=== PATIENT | female | born 1965 | race Caucasian/White ===

== ENCOUNTER 2017-08-17 22:10 | Inpatient (IN) ==
[2017-08-18] MEDS ORDERED: ONDANSETRON 4 MG/2 ML VIAL IV STA (00:07)
[2017-08-18] MEDS ORDERED: MORPHINE 2 MG/1 ML SYRINGE IV STA (00:07)
[2017-08-18] MEDS ORDERED: SODIUM CHLORIDE 0.9% 1,000 ML IV STA (00:07)
[2017-08-18 00:25] LABS: Basophils % 0.4 % (0.0-0.8); Eosinophils # 0.1 10*3/uL (0.0-0.87); Eosinophils % 0.9 % (0.00-10.9); Hematocrit 43.6 VOL% (35.7-47.0); Hemoglobin 14.9 GM/DL (12.0-16.0); Immature Granulocytes % 0.2 %; Immature Granulocytes Absolute 0.02 #; Lymphocytes # 0.3 10*3/uL (1.4-4.0); Lymphocytes % 3.4 % (21.3-54.2); Mean Corpuscular HGB Conc 34.2 GM/DL (32-36); Mean Corpuscular Hemoglobin 30 PG (27-34); Mean Corpuscular Volume 86.3 FL (87-102); Mean Platelet Volume 11.5 FL (9.6-12.0); Monocytes # 0.8 10*3/uL (0.11-0.8); Monocytes % 7.9 % (1.7-12.7); Neutrophils # 8.9 10*3/uL (1.4-7.4); Neutrophils % 87.2 % (38.7-73.9); Platelet Count 203 T/CUMM (130-400); Red Blood Count 5.05 MC/CUMM (3.8-5.5); Red Cell Distribution Width 13.8 % (9.3-17.3); White Blood Count 10.1 T/CUMM (4-12)
[2017-08-18 00:37] LABS: Albumin 3.7 G/DL (3.4-5.0); Bilirubin,Total 0.6 MG/DL (0.2-1.0); Calcium 8.2 MG/DL (8.5-10.1); Osmolality,Calculated 282.3 MOS/KG (273-304); Total Protein 6.6 G/DL (6.4-8.3)
[2017-08-18 00:40] LABS: Potassium 2.5 MMOL/L (3.5-5.1)
[2017-08-18] MEDS ORDERED: ONDANSETRON 4 MG/2 ML VIAL ONE (00:46)
[2017-08-18] MEDS ORDERED: MORPHINE 2 MG/1 ML SYRINGE ONE (00:46)
[2017-08-18 00:56] LABS: Band Neutrophils 13 % (0-10); Eosinophils 1 % (0-10); Lymphocytes 4 % (20-55); Segmented Neutrophils 76 % (50-85); Total Cells Counted 100
[2017-08-18] MEDS ORDERED: POTASSIUM CHLORIDE 20 MEQ/15 ML UDCUP PO ONE (02:04)
[2017-08-18] MEDS ORDERED: PROMETHAZINE INJ 12.5 MG in SODIUM CHLORIDE 0.9% 50 ML IV STA ×2 (04:03→04:07)
[2017-08-18] MEDS ORDERED: PROMETHAZINE 25 MG/1 ML VIAL ONE (04:18)
[2017-08-18] MEDS: DEXTROSE 5% LACTATED RINGERS 1,000 ML IV SCH (05:00)
[2017-08-18] MEDS: ACETAMINOPHEN 325 MG TABLET PO PRN ×2 (08:03→11:41)
[2017-08-18] MEDS: POTASSIUM CHLORIDE 20 MEQ/15 ML UDCUP PO SCH (08:59)
[2017-08-18] MEDS: PANTOPRAZOLE 40 MG TABLET PO SCH (09:00)
[2017-08-18] MEDS ORDERED: LACTATED RINGERS 1,000 ML IV ONE (10:12)
[2017-08-18] MEDS ORDERED: POTASSIUM CHLORIDE RIDER 10 MEQ in PREMIX 1 EACH IV PRN (10:16)
[2017-08-18 11:16] LABS: Calcium 7.9 MG/DL (8.5-10.1); Magnesium 1.9 MG/DL (1.8-2.4); Osmolality,Calculated 285.7 MOS/KG (273-304); Potassium 3.1 MMOL/L (3.5-5.1)
[2017-08-18] MEDS ORDERED: THIAMINE INJ 100 MG, FOLIC ACID INJ 1 MG, MULTIVITAMIN INJ 10 ML, POTASSIUM CHLORIDE IN... IV ONE (11:30)
[2017-08-18] MEDS: ONDANSETRON 4 MG/2 ML VIAL IV PRN ×2 (14:55→20:30)
[2017-08-18] MEDS: KETOROLAC 15 MG/1 ML VIAL IV PRN (21:28)
[2017-08-19] MEDS: DEXTROSE 5% LACTATED RINGERS 1,000 ML IV SCH ×3 (02:08→20:26)
[2017-08-19] MEDS: KETOROLAC 15 MG/1 ML VIAL IV PRN ×4 (04:35→21:09)
[2017-08-19 06:14] LABS: Basophils % 0.6 % (0.0-0.8); Eosinophils # 0.6 10*3/uL (0.0-0.87); Eosinophils % 7.8 % (0.00-10.9); Hematocrit 40.6 VOL% (35.7-47.0); Hemoglobin 13.5 GM/DL (12.0-16.0); Immature Granulocytes % 0.1 %; Immature Granulocytes Absolute 0.01 #; Lymphocytes # 1.1 10*3/uL (1.4-4.0); Lymphocytes % 15.9 % (21.3-54.2); Mean Corpuscular HGB Conc 33.3 GM/DL (32-36); Mean Corpuscular Hemoglobin 30 PG (27-34); Mean Platelet Volume 11.4 FL (9.6-12.0); Monocytes # 0.8 10*3/uL (0.11-0.8); Monocytes % 10.5 % (1.7-12.7); Neutrophils # 4.7 10*3/uL (1.4-7.4); Neutrophils % 65.1 % (38.7-73.9); Platelet Count 174 T/CUMM (130-400); Red Blood Count 4.51 MC/CUMM (3.8-5.5); Red Cell Distribution Width 14.1 % (9.3-17.3); White Blood Count 7.2 T/CUMM (4-12)
[2017-08-19 06:50] LABS: Albumin 3.2 G/DL (3.4-5.0); Bilirubin,Total 0.7 MG/DL (0.2-1.0); Calcium 8.1 MG/DL (8.5-10.1); Osmolality,Calculated 289.4 MOS/KG (273-304); Potassium 3.4 MMOL/L (3.5-5.1); Total Protein 5.9 G/DL (6.4-8.3)
[2017-08-19 07:02] LABS: Magnesium 1.9 MG/DL (1.8-2.4); Osmolality,Calculated 283.8 MOS/KG (273-304); Potassium 3.3 MMOL/L (3.5-5.1)
[2017-08-19] MEDS: ONDANSETRON 4 MG/2 ML VIAL IV PRN ×3 (07:25→20:24)
[2017-08-19] MEDS ORDERED: POTASSIUM CHLORIDE INJ 40 MEQ in SODIUM CHLORIDE 0.9% 500 ML IV ONE (08:00)
[2017-08-19] MEDS: POTASSIUM CHLORIDE 20 MEQ/15 ML UDCUP PO SCH (08:45)
[2017-08-19] MEDS: PANTOPRAZOLE 40 MG TABLET PO SCH (08:46)
[2017-08-19] MEDS ORDERED: LOPERAMIDE 2 MG CAPSULE PO PRN (10:56)
[2017-08-20] MEDS: ONDANSETRON 4 MG/2 ML VIAL IV PRN ×4 (02:41→23:08)
[2017-08-20] MEDS: KETOROLAC 15 MG/1 ML VIAL IV PRN ×4 (02:43→23:09)
[2017-08-20] MEDS: DEXTROSE 5% LACTATED RINGERS 1,000 ML IV SCH ×3 (02:53→19:34)
[2017-08-20 03:46] LABS: Basophils % 0.3 % (0.0-0.8); Eosinophils # 0.5 10*3/uL (0.0-0.87); Eosinophils % 7.9 % (0.00-10.9); Hematocrit 34.1 VOL% (35.7-47.0); Hemoglobin 11.6 GM/DL (12.0-16.0); Immature Granulocytes % 0.3 %; Immature Granulocytes Absolute 0.02 #; Lymphocytes # 1.3 10*3/uL (1.4-4.0); Lymphocytes % 20.7 % (21.3-54.2); Mean Corpuscular Hemoglobin 30 PG (27-34); Mean Corpuscular Volume 88.6 FL (87-102); Mean Platelet Volume 11.9 FL (9.6-12.0); Monocytes # 0.8 10*3/uL (0.11-0.8); Monocytes % 13.2 % (1.7-12.7); Neutrophils # 3.5 10*3/uL (1.4-7.4); Neutrophils % 57.6 % (38.7-73.9); Platelet Count 141 T/CUMM (130-400); Red Blood Count 3.85 MC/CUMM (3.8-5.5); Red Cell Distribution Width 13.8 % (9.3-17.3)
[2017-08-20 04:24] LABS: Calcium 7.7 MG/DL (8.5-10.1); Magnesium 1.7 MG/DL (1.8-2.4); Osmolality,Calculated 284.7 MOS/KG (273-304); Potassium 3.2 MMOL/L (3.5-5.1)
[2017-08-20] MEDS: POTASSIUM CHLORIDE 20 MEQ/15 ML UDCUP PO SCH (10:29)
[2017-08-20] MEDS: PANTOPRAZOLE 40 MG TABLET PO SCH (10:29)
[2017-08-20] MEDS ORDERED: HYOSCYAMINE SULFATE SL SCH (17:00)
[2017-08-20] MEDS: SUCRALFATE 1 GM/10 ML UDCUP PO SCH ×2 (19:33→20:39)
[2017-08-21] MEDS: DEXTROSE 5% LACTATED RINGERS 1,000 ML IV SCH (05:23)
[2017-08-21] MEDS: ONDANSETRON 4 MG/2 ML VIAL IV PRN ×2 (05:23→11:31)
[2017-08-21] MEDS: KETOROLAC 15 MG/1 ML VIAL IV PRN ×2 (05:24→11:31)
[2017-08-21] MEDS: POTASSIUM CHLORIDE 20 MEQ/15 ML UDCUP PO SCH (08:30)
[2017-08-21] MEDS: SUCRALFATE 1 GM/10 ML UDCUP PO SCH (08:31)
[2017-08-21] MEDS: PANTOPRAZOLE 40 MG TABLET PO SCH (08:32)
[2017-08-21] MEDS ORDERED: CALCIUM (CARBONATE) 600 MG TABLET PO SCH (09:00)
[2017-08-21] MEDS ORDERED: FUROSEMIDE 40 MG TABLET PO SCH (09:00)
[2017-08-21] MEDS ORDERED: LISINOPRIL 20 MG TABLET PO SCH (09:00)
[2017-08-21] MEDS ORDERED: LINACLOTIDE PO SCH (09:00)
[2017-08-21] MEDS ORDERED: MULTIVITAMIN (CENTRUM) TABLET PO SCH (09:00)
[2017-08-21 12:43] VITALS: BP 128/77
[2017-09-16] MEDS ORDERED: CYANOCOBALAMIN 1000 MCG/1 ML VIAL IM SCH (16:00)
== END 2017-08-21 12:45 | disposition home or self-care (01) | DRG 392 ==
LOC: N.ED 22:10 → N.EDINP 08-18 04:03 → N.2E 08-18 04:32
PROVIDERS: ADMIT Surgery; ATTEND Surgery

== ENCOUNTER 2018-07-10 07:03 | Observation (INO) ==
[2018-07-10] MEDS ORDERED: SODIUM CHLORIDE 0.9% 1,000 ML IV STA (07:23)
[2018-07-10] MEDS ORDERED: MORPHINE 4 MG/1 ML VIAL IV STA ×2 (07:29→09:10)
[2018-07-10] MEDS ORDERED: ONDANSETRON 4 MG/2 ML VIAL IV STA ×2 (07:30→09:10)
[2018-07-10] MEDS ORDERED: ONDANSETRON 4 MG/2 ML VIAL ONE (07:31)
[2018-07-10] MEDS ORDERED: MORPHINE 4 MG/1 ML VIAL ONE (07:32)
[2018-07-10 07:58] LABS: Basophils # 0.1 10*3/uL (0.0-0.2); Basophils % 0.8 % (0.0-0.8); Eosinophils # 0.3 10*3/uL (0.0-0.87); Eosinophils % 3.5 % (0.00-10.9); Hematocrit 32.5 VOL% (35.7-47.0); Hemoglobin 10.6 GM/DL (12.0-16.0); Immature Granulocytes % 0.4 %; Immature Granulocytes Absolute 0.04 #; Lymphocytes # 1.6 10*3/uL (1.4-4.0); Lymphocytes % 17.4 % (21.3-54.2); Mean Corpuscular HGB Conc 32.6 GM/DL (32-36); Mean Corpuscular Hemoglobin 29 PG (27-34); Mean Platelet Volume 9.9 FL (9.6-12.0); Monocytes # 0.8 10*3/uL (0.11-0.8); Monocytes % 8.2 % (1.7-12.7); Neutrophils # 6.4 10*3/uL (1.4-7.4); Neutrophils % 69.7 % (38.7-73.9); Platelet Count 391 T/CUMM (130-400); Red Blood Count 3.61 MC/CUMM (3.8-5.5); Red Cell Distribution Width 13.7 % (9.3-17.3); White Blood Count 9.1 T/CUMM (4-12)
[2018-07-10 08:06] LABS: INR 0.9; PT Patient Result 9.7 SECS; Partial Thromboplastin Time 23.8 SECS (0-40)
[2018-07-10 08:12] LABS: Albumin 3.2 G/DL (3.4-5.0); Bilirubin,Total 0.7 MG/DL (0.2-1.0); Osmolality,Calculated 283.1 MOS/KG (273-304); Total Protein 6.4 G/DL (6.4-8.3)
[2018-07-10 08:14] LABS: Apearance,Urine CLEAR (Clear); Bacteria,Urine Occasional /HPF (Few); Bilirubin,Urine Negative (Negative); Blood, Urine Negative (Negative); Glucose,Urine (UA) Negative (Negative); Ketones,Urine Negative (Negative); Mucus,Urine Occasional /LPF (Occasional); Nitrite,Urine Negative (Negative); Protein,Urine Negative; RBC,Urine 2 /HPF (0-4); Urine Color Yellow (Yellow); Urine Specific Gravity 1.013 (1.001-1.035); WBC,Urine <1 /HPF (0-6)
[2018-07-10 08:17] LABS: Barbiturates Screen,Urine Negative (Negative); Benzodiazepines Screen,Urine Positive (Negative); Cannabinoid Screen,Urine Negative (Negative); Opiate Screen,Urine Positive (Negative); Phencyclidine Screen,Urine Negative (Negative)
[2018-07-10] MEDS ORDERED: POTASSIUM CHLORIDE 20 MEQ TABLET PO STA (08:43)
[2018-07-10 08:53] LABS: ABG Base Excess 1.3 MMOL/L (-2.5-2.5); ABG HCO3 25.6 MMOL/L (20-26); ABG PCO2 30.2 MM HG (35-48); ABG PH 7.507 (7.35-7.45); ABG PO2 96.2 MM HG (80-95); ABG TCO2 21.8 MMOL/L (23-27)
[2018-07-10] MEDS ORDERED: ONDANSETRON 4 MG/2 ML VIAL IV PRN (11:05)
[2018-07-10] MEDS ORDERED: ACETAMINOPHEN 325 MG TABLET PO PRN (11:05)
[2018-07-10] MEDS ORDERED: POTASSIUM CHLORIDE 20 MEQ TABLET PO PRN (11:07)
[2018-07-10] MEDS ORDERED: LUBIPROSTONE 8 MCG CAPSULE PO PRN (11:52)
[2018-07-10] MEDS ORDERED: LISDEXAMFETAMINE DIMESYLATE 30 MG PO SCH (12:00)
[2018-07-10] MEDS: oxyCODONE/ACETAMINOPHEN 5-325 MG TABLET PO PRN ×3 (13:09→20:47)
[2018-07-10] MEDS: DOCUSATE SODIUM 100 MG CAPSULE PO SCH (13:09)
[2018-07-10] MEDS: CYCLOBENZAPRINE 10 MG TABLET PO PRN ×2 (13:09→20:46)
[2018-07-10] MEDS: OLMESARTAN 20 MG TABLET PO SCH (13:10)
[2018-07-10] MEDS: FUROSEMIDE 40 MG TABLET PO SCH (13:11)
[2018-07-10] MEDS: LINACLOTIDE 145 MCG CAPSULE PO SCH (13:14)
[2018-07-10 14:00] LABS: Troponin I < 0.015 NG/ML (0.00-0.045)
[2018-07-10 19:48] LABS: Troponin I < 0.015 NG/ML (0.00-0.045)
[2018-07-10] MEDS: PREGABALIN 75 MG CAPSULE PO SCH (20:46)
[2018-07-10] MEDS ORDERED: [UNRECOGNIZED DRUG - OTHER] PO SCH (21:00)
[2018-07-10] MEDS ORDERED: NALTREXONE HCL PO SCH (21:00)
[2018-07-10] MEDS ORDERED: BUPROPION HCL PO SCH (21:00)
[2018-07-11] MEDS: oxyCODONE/ACETAMINOPHEN 5-325 MG TABLET PO PRN ×2 (03:19→09:45)
[2018-07-11 05:55] LABS: Basophils # 0.1 10*3/uL (0.0-0.2); Basophils % 0.5 % (0.0-0.8); Eosinophils # 0.3 10*3/uL (0.0-0.87); Eosinophils % 3.7 % (0.00-10.9); Hematocrit 30.5 VOL% (35.7-47.0); Hemoglobin 9.4 GM/DL (12.0-16.0); Immature Granulocytes % 0.2 %; Immature Granulocytes Absolute 0.02 #; Lymphocytes # 1.4 10*3/uL (1.4-4.0); Lymphocytes % 14.7 % (21.3-54.2); Mean Corpuscular HGB Conc 30.8 GM/DL (32-36); Mean Corpuscular Hemoglobin 29 PG (27-34); Mean Corpuscular Volume 92.7 FL (87-102); Mean Platelet Volume 9.8 FL (9.6-12.0); Monocytes # 0.6 10*3/uL (0.11-0.8); Monocytes % 6.7 % (1.7-12.7); Neutrophils # 6.9 10*3/uL (1.4-7.4); Neutrophils % 74.2 % (38.7-73.9); Platelet Count 341 T/CUMM (130-400); Red Blood Count 3.29 MC/CUMM (3.8-5.5); Red Cell Distribution Width 14.1 % (9.3-17.3); White Blood Count 9.3 T/CUMM (4-12)
[2018-07-11 06:21] LABS: Calcium 7.9 MG/DL (8.5-10.1); Osmolality,Calculated 286.7 MOS/KG (273-304); Potassium 3.9 MMOL/L (3.5-5.1); Risk Ratio 4.49; Thyroid Stimulating Hormone 0.445 uIU/ml (0.358-3.74); VLDL CHOLESTEROL 20.4 MG/DL
[2018-07-11 07:36] VITALS: BP 102/70
[2018-07-11] MEDS: CYCLOBENZAPRINE 10 MG TABLET PO PRN (07:49)
[2018-07-11] MEDS ORDERED: PANTOPRAZOLE 40 MG TABLET PO SCH (09:00)
[2018-07-11] MEDS ORDERED: ASPIRIN EC 81 MG TABLET PO SCH (09:00)
[2018-07-11] MEDS: DOCUSATE SODIUM 100 MG CAPSULE PO SCH (09:45)
[2018-07-11] MEDS: OLMESARTAN 20 MG TABLET PO SCH (09:45)
[2018-07-11] MEDS: FUROSEMIDE 40 MG TABLET PO SCH (09:45)
[2018-07-11] MEDS: PREGABALIN 75 MG CAPSULE PO SCH (09:46)
[2018-07-11] MEDS: LINACLOTIDE 145 MCG CAPSULE PO SCH (09:46)
== END 2018-07-11 10:51 | disposition home or self-care (01) ==
LOC: N.ED 07:03 → N.EDINP 07:03 → N.5E 10:26
PROVIDERS: ADMIT Internal Medicine; ATTEND Internal Medicine

== ENCOUNTER 2019-11-07 20:19 | Inpatient (IN) ==
[2019-11-07] MEDS ORDERED: METOCLOPRAMIDE 10 MG/2 ML VIAL IV STA (20:46)
[2019-11-07] MEDS ORDERED: methylPREDNISolone SOD SUC 125 MG/2 ML VIAL IV STA (20:46)
[2019-11-07] MEDS ORDERED: cefTRIAXone 1,000 MG in SODIUM CHLORIDE 0.9% 100 ML IV STA (20:46)
[2019-11-07] MEDS ORDERED: ALBUTEROL/IPRATROPIUM 3 ML NEB RESP TX STA (20:46)
[2019-11-07] MEDS ORDERED: AZITHROMYCIN INJ 500 MG in SODIUM CHLORIDE 0.9% 250 ML IV STA (20:46)
[2019-11-07] MEDS ORDERED: ONDANSETRON 4 MG/2 ML VIAL IV STA (20:46)
[2019-11-07] MEDS ORDERED: KETOROLAC 30 MG/1 ML VIAL IV STA (20:48)
[2019-11-07] MEDS ORDERED: ORPHENADRINE 60 MG/2 ML VIAL IV STA (20:49)
[2019-11-07 21:23] LABS: Apearance,Urine Slightly Hazy (Clear); Bilirubin,Urine Negative (Negative); Blood, Urine Negative (Negative); Glucose,Urine (UA) Negative (Negative); Ketones,Urine 5 mg/dL (Negative); Mucus,Urine Many /LPF (Occasional); Nitrite,Urine Negative (Negative); Protein,Urine 100 MG/DL; RBC,Urine 8 /HPF (0-4); Squamous Epithelial Cell,Urine Few /HPF (0-10); Urine Color Yellow (Yellow); Urine Specific Gravity 1.028 (1.001-1.035); Urine Urobilinogen < 2.0 EU/DL (0.2-1.0); WBC,Urine 1 /HPF (0-6)
[2019-11-07 22:35] LABS: INR 0.9; PT Patient Result 10.3 SECS (9.6-12.2); Partial Thromboplastin Time < 21.0 SECS (20.8-36.0)
[2019-11-07] MEDS ORDERED: ALBUTEROL NEB SOLN 5 MG/ML 20 ML/BOTTLE CONT NEB STA (22:46)
[2019-11-07 22:51] LABS: Alanine Aminotransferase 42 U/L (13-56); Albumin 3.5 G/DL (3.4-5.0); Alkaline Phosphatase 98 U/L (45-117); Aspartate Amino Transferase 46 U/L (0-37); Blood Urea Nitrogen 7 MG/DL (7-18); Calcium 8.6 MG/DL (8.5-10.1); Estimated Glom Filtration Rate 108 ML/MIN; Glucose 109 MG/DL (74-106); Osmolality,Calculated 273.7 MOS/KG (273-304); Total Protein 7.9 G/DL (6.4-8.3); Troponin I < 0.015 NG/ML (0.00-0.045)
[2019-11-07 23:06] LABS: Basophils # 0.1 10*3/uL (0.0-0.2); Basophils % 0.8 % (0.0-0.8); Eosinophils # 0.2 10*3/uL (0.0-0.87); Hematocrit 39.4 VOL% (35.7-47.0); Hemoglobin 12.1 GM/DL (12.0-16.0); Immature Granulocytes % 0.5 %; Immature Granulocytes Absolute 0.03 #; Lymphocytes # 0.8 10*3/uL (1.4-4.0); Lymphocytes % 13.3 % (21.3-54.2); Mean Corpuscular HGB Conc 30.7 GM/DL (32-36); Mean Corpuscular Volume 93.1 FL (87-102); Mean Platelet Volume 10.3 FL (9.6-12.0); Monocytes % 7.3 % (1.7-12.7); Neutrophils % 75.1 % (38.7-73.9); Platelet Count 193 T/CUMM (130-400); Red Blood Count 4.23 MC/CUMM (3.8-5.5); Red Cell Distribution Width 15.2 % (9.3-17.3); White Blood Count 6.3 T/CUMM (4-12)
[2019-11-08] MEDS ORDERED: DEXTROMETHORPHAN ER 6 MG/ML 90 ML/BOTTLE PO STA (01:10)
[2019-11-08] MEDS ORDERED: PROMETHAZINE 25 MG/1 ML VIAL IM PRN (04:37)
[2019-11-08] MEDS ORDERED: ALBUTEROL 2.5 MG/3 ML NEB RESP TX PRN (04:37)
[2019-11-08] MEDS ORDERED: clonazePAM 0.5 MG TABLET PO PRN (04:37)
[2019-11-08] MEDS ORDERED: hydrALAZINE 20 MG/1 ML VIAL IV PRN (04:37)
[2019-11-08] MEDS ORDERED: ACETAMINOPHEN 325 MG TABLET PO PRN (04:37)
[2019-11-08] MEDS: LEVOFLOXACIN INJ 750 MG in PREMIX 1 EACH IV SCH (05:34)
[2019-11-08] MEDS: BENZONATATE 100 MG CAPSULE PO SCH ×3 (06:23→20:29)
[2019-11-08] MEDS: LINACLOTIDE 145 MCG CAPSULE PO SCH (07:53)
[2019-11-08] MEDS: predniSONE 20 MG TABLET PO SCH (07:53)
[2019-11-08] MEDS: VANCOMYCIN INJ 1,250 MG in SODIUM CHLORIDE 0.9% 250 ML IV SCH ×2 (07:54→18:17)
[2019-11-08] MEDS: ENOXAPARIN 40 MG/0.4 ML SYRINGE SUBCUT SCH (07:57)
[2019-11-08] MEDS: ALBUTEROL/IPRATROPIUM 3 ML NEB RESP TX SCH ×3 (08:48→20:28)
[2019-11-08] MEDS ORDERED: DEXTROAMPHETAMINE AMPHETAMINE 20 MG PO SCH (09:00)
[2019-11-08] MEDS: VALSARTAN 160 MG TABLET PO SCH (09:04)
[2019-11-08] MEDS: FUROSEMIDE 40 MG TABLET PO SCH (09:04)
[2019-11-08] MEDS: PIPERACILLIN/TAZOBACTAM 3,375 MG in SODIUM CHLORIDE 0.9% 100 ML IV SCH ×2 (09:04→16:29)
[2019-11-08] MEDS: ONDANSETRON 4 MG/2 ML VIAL IV PRN (14:26)
[2019-11-08] MEDS: IBUPROFEN 600 MG TABLET PO PRN ×2 (14:29→20:28)
[2019-11-08] MEDS: traMADol 50 MG TABLET PO PRN (18:10)
[2019-11-09] MEDS: ALBUTEROL/IPRATROPIUM 3 ML NEB RESP TX SCH ×4 (00:38→20:05)
[2019-11-09] MEDS: PIPERACILLIN/TAZOBACTAM 3,375 MG in SODIUM CHLORIDE 0.9% 100 ML IV SCH ×3 (00:52→20:26)
[2019-11-09] MEDS: ZALEPLON 5 MG CAPSULE PO PRN (00:57)
[2019-11-09] MEDS: IBUPROFEN 600 MG TABLET PO PRN (02:27)
[2019-11-09] MEDS ORDERED: KETOROLAC 30 MG/1 ML VIAL IV ONE ×2 (03:08→21:51)
[2019-11-09 04:34] LABS: Basophils % 0.2 % (0.0-0.8); Hematocrit 34.3 VOL% (35.7-47.0); Hemoglobin 10.5 GM/DL (12.0-16.0); Immature Granulocytes Absolute 0.16 #; Lymphocytes # 1.3 10*3/uL (1.4-4.0); Mean Corpuscular HGB Conc 30.6 GM/DL (32-36); Mean Platelet Volume 10.5 FL (9.6-12.0); Monocytes % 7.5 % (1.7-12.7); Neutrophils % 83.3 % (38.7-73.9); Platelet Count 257 T/CUMM (130-400); Red Blood Count 3.69 MC/CUMM (3.8-5.5); Red Cell Distribution Width 15.1 % (9.3-17.3); White Blood Count 16.6 T/CUMM (4-12)
[2019-11-09 05:00] LABS: Calcium 8.5 MG/DL (8.5-10.1); Osmolality,Calculated 284.3 MOS/KG (273-304)
[2019-11-09] MEDS: traMADol 50 MG TABLET PO PRN ×2 (07:02→20:33)
[2019-11-09] MEDS: LEVOFLOXACIN INJ 750 MG in PREMIX 1 EACH IV SCH (07:03)
[2019-11-09] MEDS: LINACLOTIDE 145 MCG CAPSULE PO SCH (08:41)
[2019-11-09] MEDS: predniSONE 20 MG TABLET PO SCH (08:41)
[2019-11-09] MEDS: ENOXAPARIN 40 MG/0.4 ML SYRINGE SUBCUT SCH (09:00)
[2019-11-09] MEDS ORDERED: CYANOCOBALAMIN 1000 MCG/1 ML VIAL IM SCH (09:00)
[2019-11-09] MEDS: FUROSEMIDE 40 MG TABLET PO SCH (10:45)
[2019-11-09] MEDS: BENZONATATE 100 MG CAPSULE PO SCH ×3 (10:45→20:26)
[2019-11-09] MEDS: VANCOMYCIN INJ 1,250 MG in SODIUM CHLORIDE 0.9% 250 ML IV SCH (10:46)
[2019-11-09] MEDS ORDERED: KETOROLAC 30 MG/1 ML VIAL ONE ×2 (10:48→12:12)
[2019-11-09] MEDS: guaiFENesin/CODEINE 5 ML LIQUID PO PRN ×2 (10:54→20:26)
[2019-11-09] MEDS: VALSARTAN 160 MG TABLET PO SCH (10:55)
[2019-11-09] MEDS: SODIUM CHLOR 0.9% KCL 20 MEQ 20 MEQ/1,000 ML BAG IV SCH (16:37)
[2019-11-10] MEDS: VANCOMYCIN INJ 1,250 MG in SODIUM CHLORIDE 0.9% 250 ML IV SCH ×2 (00:43→11:31)
[2019-11-10] MEDS: ONDANSETRON 4 MG/2 ML VIAL IV PRN ×2 (00:56→15:22)
[2019-11-10] MEDS: ALBUTEROL/IPRATROPIUM 3 ML NEB RESP TX SCH ×4 (00:58→20:55)
[2019-11-10] MEDS: guaiFENesin/CODEINE 5 ML LIQUID PO PRN ×2 (03:27→22:02)
[2019-11-10] MEDS: DOCUSATE SODIUM 100 MG CAPSULE PO PRN (05:23)
[2019-11-10] MEDS: LEVOFLOXACIN INJ 750 MG in PREMIX 1 EACH IV SCH (05:23)
[2019-11-10 06:16] LABS: Basophils % 0.2 % (0.0-0.8); Eosinophils % 0.1 % (0.00-10.9); Hematocrit 33.2 VOL% (35.7-47.0); Hemoglobin 10.1 GM/DL (12.0-16.0); Immature Granulocytes % 1.8 %; Immature Granulocytes Absolute 0.24 #; Lymphocytes # 2.4 10*3/uL (1.4-4.0); Lymphocytes % 17.5 % (21.3-54.2); Mean Corpuscular HGB Conc 30.4 GM/DL (32-36); Mean Corpuscular Volume 94.1 FL (87-102); Mean Platelet Volume 10.8 FL (9.6-12.0); Monocytes % 7.4 % (1.7-12.7); Platelet Count 263 T/CUMM (130-400); Red Blood Count 3.53 MC/CUMM (3.8-5.5); Red Cell Distribution Width 15.3 % (9.3-17.3); White Blood Count 13.5 T/CUMM (4-12)
[2019-11-10 06:34] LABS: Osmolality,Calculated 285.1 MOS/KG (273-304)
[2019-11-10] MEDS: PIPERACILLIN/TAZOBACTAM 3,375 MG in SODIUM CHLORIDE 0.9% 100 ML IV SCH ×3 (07:11→20:10)
[2019-11-10] MEDS: traMADol 50 MG TABLET PO PRN (08:17)
[2019-11-10] MEDS: predniSONE 20 MG TABLET PO SCH (08:17)
[2019-11-10] MEDS: PANTOPRAZOLE 40 MG TABLET PO PRN (08:18)
[2019-11-10] MEDS: ENOXAPARIN 40 MG/0.4 ML SYRINGE SUBCUT SCH (08:18)
[2019-11-10] MEDS: LINACLOTIDE 145 MCG CAPSULE PO SCH (08:18)
[2019-11-10] MEDS: BENZONATATE 100 MG CAPSULE PO SCH ×3 (08:18→20:09)
[2019-11-10] MEDS: VALSARTAN 160 MG TABLET PO SCH (08:18)
[2019-11-10] MEDS: FUROSEMIDE 40 MG TABLET PO SCH (08:18)
[2019-11-10] MEDS: KETOROLAC 30 MG/1 ML VIAL IV PRN ×2 (10:25→20:07)
[2019-11-10] MEDS ORDERED: PHENOL 1.4% THROAT SPRAY 177 ML BOTTLE PO PRN (10:30)
[2019-11-10] MEDS: IBUPROFEN 600 MG TABLET PO PRN (18:09)
[2019-11-10] MEDS: ZALEPLON 5 MG CAPSULE PO PRN (21:55)
[2019-11-11] MEDS: ALBUTEROL/IPRATROPIUM 3 ML NEB RESP TX SCH ×4 (01:21→20:09)
[2019-11-11] MEDS: VANCOMYCIN INJ 1,250 MG in SODIUM CHLORIDE 0.9% 250 ML IV SCH ×2 (01:45→17:15)
[2019-11-11] MEDS: LEVOFLOXACIN INJ 750 MG in PREMIX 1 EACH IV SCH (04:35)
[2019-11-11] MEDS: SODIUM CHLOR 0.9% KCL 20 MEQ 20 MEQ/1,000 ML BAG IV SCH (04:36)
[2019-11-11] MEDS: guaiFENesin/CODEINE 5 ML LIQUID PO PRN ×2 (04:44→21:24)
[2019-11-11 05:42] LABS: Basophils # 0.1 10*3/uL (0.0-0.2); Basophils % 0.5 % (0.0-0.8); Eosinophils % 0.3 % (0.00-10.9); Hematocrit 34.1 VOL% (35.7-47.0); Hemoglobin 10.9 GM/DL (12.0-16.0); Immature Granulocytes % 2.7 %; Immature Granulocytes Absolute 0.35 #; Lymphocytes # 2.7 10*3/uL (1.4-4.0); Lymphocytes % 20.9 % (21.3-54.2); Mean Corpuscular Volume 90.2 FL (87-102); Mean Platelet Volume 10.7 FL (9.6-12.0); Monocytes % 8.8 % (1.7-12.7); Neutrophils % 66.8 % (38.7-73.9); Platelet Count 285 T/CUMM (130-400); Red Blood Count 3.78 MC/CUMM (3.8-5.5); Red Cell Distribution Width 15.4 % (9.3-17.3); White Blood Count 12.9 T/CUMM (4-12)
[2019-11-11 06:00] LABS: Calcium 8.1 MG/DL (8.5-10.1)
[2019-11-11] MEDS: PIPERACILLIN/TAZOBACTAM 3,375 MG in SODIUM CHLORIDE 0.9% 100 ML IV SCH ×2 (06:33→18:35)
[2019-11-11] MEDS: BENZONATATE 100 MG CAPSULE PO SCH ×3 (08:39→21:24)
[2019-11-11] MEDS: KETOROLAC 30 MG/1 ML VIAL IV PRN ×2 (08:39→21:25)
[2019-11-11] MEDS: predniSONE 20 MG TABLET PO SCH (08:40)
[2019-11-11] MEDS: PANTOPRAZOLE 40 MG TABLET PO PRN (08:40)
[2019-11-11] MEDS: LINACLOTIDE 145 MCG CAPSULE PO SCH (08:40)
[2019-11-11] MEDS: FUROSEMIDE 40 MG TABLET PO SCH (08:40)
[2019-11-11] MEDS: DOCUSATE SODIUM 100 MG CAPSULE PO PRN (08:40)
[2019-11-11] MEDS: VALSARTAN 160 MG TABLET PO SCH (08:41)
[2019-11-11] MEDS: ENOXAPARIN 40 MG/0.4 ML SYRINGE SUBCUT SCH (08:41)
[2019-11-11] MEDS: POTASSIUM CHLORIDE 20 MEQ TABLET PO SCH ×2 (09:38→12:47)
[2019-11-11] MEDS: traMADol 50 MG TABLET PO PRN (11:53)
[2019-11-11] MEDS: ONDANSETRON 4 MG/2 ML VIAL IV PRN (18:36)
[2019-11-11] MEDS: ZALEPLON 5 MG CAPSULE PO PRN (21:24)
[2019-11-12] MEDS: ALBUTEROL/IPRATROPIUM 3 ML NEB RESP TX SCH ×4 (00:56→19:44)
[2019-11-12] MEDS: traMADol 50 MG TABLET PO PRN ×2 (01:10→13:06)
[2019-11-12] MEDS: PIPERACILLIN/TAZOBACTAM 3,375 MG in SODIUM CHLORIDE 0.9% 100 ML IV SCH ×2 (01:31→09:05)
[2019-11-12] MEDS: KETOROLAC 30 MG/1 ML VIAL IV PRN (05:02)
[2019-11-12 05:27] LABS: Basophils # 0.1 10*3/uL (0.0-0.2); Basophils % 0.4 % (0.0-0.8); Eosinophils # 0.1 10*3/uL (0.0-0.87); Eosinophils % 0.8 % (0.00-10.9); Hematocrit 31.8 VOL% (35.7-47.0); Hemoglobin 10.2 GM/DL (12.0-16.0); Immature Granulocytes % 2.5 %; Lymphocytes # 2.7 10*3/uL (1.4-4.0); Lymphocytes % 22.5 % (21.3-54.2); Mean Corpuscular HGB Conc 32.1 GM/DL (32-36); Mean Corpuscular Volume 90.3 FL (87-102); Mean Platelet Volume 10.4 FL (9.6-12.0); Monocytes % 9.8 % (1.7-12.7); Platelet Count 281 T/CUMM (130-400); Red Blood Count 3.52 MC/CUMM (3.8-5.5); Red Cell Distribution Width 15.8 % (9.3-17.3); White Blood Count 12.1 T/CUMM (4-12)
[2019-11-12 05:59] LABS: Calcium 8.2 MG/DL (8.5-10.1); Osmolality,Calculated 285.1 MOS/KG (273-304)
[2019-11-12] MEDS: LEVOFLOXACIN INJ 750 MG in PREMIX 1 EACH IV SCH (06:17)
[2019-11-12] MEDS: VANCOMYCIN INJ 1,250 MG in SODIUM CHLORIDE 0.9% 250 ML IV SCH (06:18)
[2019-11-12] MEDS: BENZONATATE 100 MG CAPSULE PO SCH ×3 (08:10→20:22)
[2019-11-12] MEDS: ENOXAPARIN 40 MG/0.4 ML SYRINGE SUBCUT SCH (08:10)
[2019-11-12] MEDS: VALSARTAN 160 MG TABLET PO SCH (08:10)
[2019-11-12] MEDS: LINACLOTIDE 145 MCG CAPSULE PO SCH (08:10)
[2019-11-12] MEDS: SODIUM CHLOR 0.9% KCL 20 MEQ 20 MEQ/1,000 ML BAG IV SCH ×4 (08:11→14:35)
[2019-11-12] MEDS: predniSONE 20 MG TABLET PO SCH (08:11)
[2019-11-12] MEDS: FUROSEMIDE 40 MG TABLET PO SCH (08:11)
[2019-11-12] MEDS: IBUPROFEN 600 MG TABLET PO PRN (09:04)
[2019-11-12] MEDS: guaiFENesin/CODEINE 5 ML LIQUID PO PRN ×2 (09:05→23:15)
[2019-11-12] MEDS: oxyCODONE IR 5 MG TABLET PO PRN ×2 (15:43→20:22)
[2019-11-13] MEDS: oxyCODONE IR 5 MG TABLET PO PRN ×5 (01:25→21:02)
[2019-11-13] MEDS: SODIUM CHLOR 0.9% KCL 20 MEQ 20 MEQ/1,000 ML BAG IV SCH ×2 (01:25→11:19)
[2019-11-13] MEDS: ALBUTEROL/IPRATROPIUM 3 ML NEB RESP TX SCH ×4 (01:33→19:56)
[2019-11-13 05:43] LABS: Basophils # 0.1 10*3/uL (0.0-0.2); Basophils % 0.4 % (0.0-0.8); Eosinophils # 0.1 10*3/uL (0.0-0.87); Hematocrit 31.6 VOL% (35.7-47.0); Hemoglobin 10.1 GM/DL (12.0-16.0); Immature Granulocytes % 2.5 %; Immature Granulocytes Absolute 0.31 #; Lymphocytes # 2.7 10*3/uL (1.4-4.0); Lymphocytes % 21.7 % (21.3-54.2); Mean Platelet Volume 10.5 FL (9.6-12.0); Monocytes % 7.6 % (1.7-12.7); Neutrophils % 66.8 % (38.7-73.9); Platelet Count 286 T/CUMM (130-400); Red Blood Count 3.51 MC/CUMM (3.8-5.5); Red Cell Distribution Width 15.6 % (9.3-17.3); White Blood Count 12.5 T/CUMM (4-12)
[2019-11-13 06:17] LABS: Calcium 8.2 MG/DL (8.5-10.1); Osmolality,Calculated 284.3 MOS/KG (273-304)
[2019-11-13] MEDS: LEVOFLOXACIN INJ 750 MG in PREMIX 1 EACH IV SCH (06:50)
[2019-11-13] MEDS: ENOXAPARIN 40 MG/0.4 ML SYRINGE SUBCUT SCH ×2 (07:45→07:49)
[2019-11-13] MEDS: LINACLOTIDE 145 MCG CAPSULE PO SCH (07:45)
[2019-11-13] MEDS: predniSONE 20 MG TABLET PO SCH ×2 (07:45→07:49)
[2019-11-13] MEDS: PANTOPRAZOLE 40 MG TABLET PO PRN (07:46)
[2019-11-13] MEDS: FUROSEMIDE 40 MG TABLET PO SCH (08:01)
[2019-11-13] MEDS: BENZONATATE 100 MG CAPSULE PO SCH ×3 (08:01→21:02)
[2019-11-13] MEDS: VALSARTAN 160 MG TABLET PO SCH (12:36)
[2019-11-13] MEDS: DOCUSATE SODIUM 100 MG CAPSULE PO PRN (16:47)
[2019-11-13] MEDS: guaiFENesin/CODEINE 5 ML LIQUID PO PRN (22:03)
[2019-11-14] MEDS: ALBUTEROL/IPRATROPIUM 3 ML NEB RESP TX SCH ×4 (00:32→19:34)
[2019-11-14] MEDS: ZALEPLON 5 MG CAPSULE PO PRN ×2 (01:08→23:36)
[2019-11-14] MEDS: oxyCODONE IR 5 MG TABLET PO PRN ×5 (01:08→23:32)
[2019-11-14 05:17] LABS: Basophils # 0.1 10*3/uL (0.0-0.2); Basophils % 0.4 % (0.0-0.8); Eosinophils # 0.2 10*3/uL (0.0-0.87); Eosinophils % 1.7 % (0.00-10.9); Hemoglobin 10.1 GM/DL (12.0-16.0); Immature Granulocytes % 2.3 %; Lymphocytes # 2.4 10*3/uL (1.4-4.0); Lymphocytes % 18.7 % (21.3-54.2); Mean Corpuscular HGB Conc 30.6 GM/DL (32-36); Mean Corpuscular Volume 91.7 FL (87-102); Mean Platelet Volume 11.3 FL (9.6-12.0); Monocytes % 7.8 % (1.7-12.7); Neutrophils % 69.1 % (38.7-73.9); Platelet Count 210 T/CUMM (130-400); Red Cell Distribution Width 15.3 % (9.3-17.3); White Blood Count 12.9 T/CUMM (4-12)
[2019-11-14 05:42] LABS: Eosinophils 1 % (0-10); Hypochromasia 1+; Lymphocytes 28 % (20-55); Ovalocytes Slight; Platelet Estimate Adequate; Segmented Neutrophils 64 % (50-85); Total Cells Counted 100
[2019-11-14] MEDS: LEVOFLOXACIN INJ 750 MG in PREMIX 1 EACH IV SCH (05:49)
[2019-11-14 05:52] LABS: Calcium 8.3 MG/DL (8.5-10.1); Osmolality,Calculated 277.5 MOS/KG (273-304)
[2019-11-14] MEDS: VALSARTAN 160 MG TABLET PO SCH (08:50)
[2019-11-14] MEDS: LINACLOTIDE 145 MCG CAPSULE PO SCH (08:50)
[2019-11-14] MEDS: ENOXAPARIN 40 MG/0.4 ML SYRINGE SUBCUT SCH (08:51)
[2019-11-14] MEDS: FUROSEMIDE 40 MG TABLET PO SCH (08:51)
[2019-11-14] MEDS: BENZONATATE 100 MG CAPSULE PO SCH ×3 (08:51→20:25)
[2019-11-14] MEDS: predniSONE 20 MG TABLET PO SCH (08:51)
[2019-11-14] MEDS: SODIUM CHLOR 0.9% KCL 20 MEQ 20 MEQ/1,000 ML BAG IV SCH ×2 (10:06→20:28)
[2019-11-14] MEDS: DOCUSATE SODIUM 100 MG CAPSULE PO PRN (14:07)
[2019-11-14] MEDS: guaiFENesin/CODEINE 5 ML LIQUID PO PRN (23:33)
[2019-11-15] MEDS: ALBUTEROL/IPRATROPIUM 3 ML NEB RESP TX SCH ×3 (01:23→12:42)
[2019-11-15] MEDS: LEVOFLOXACIN INJ 750 MG in PREMIX 1 EACH IV SCH (05:44)
[2019-11-15] MEDS: oxyCODONE IR 5 MG TABLET PO PRN ×2 (05:45→11:02)
[2019-11-15] MEDS ORDERED: methylPREDNISolone SOD SUC 40 MG/1 ML VIAL IV ONE (09:21)
[2019-11-15] MEDS: LINACLOTIDE 145 MCG CAPSULE PO SCH (09:29)
[2019-11-15] MEDS: VALSARTAN 160 MG TABLET PO SCH (09:29)
[2019-11-15] MEDS: BENZONATATE 100 MG CAPSULE PO SCH ×2 (09:29→15:34)
[2019-11-15] MEDS: FUROSEMIDE 40 MG TABLET PO SCH (09:29)
[2019-11-15] MEDS: predniSONE 20 MG TABLET PO SCH (09:29)
[2019-11-15] MEDS: ENOXAPARIN 40 MG/0.4 ML SYRINGE SUBCUT SCH (09:30)
[2019-11-15] MEDS: DOCUSATE SODIUM 100 MG CAPSULE PO PRN (11:03)
[2019-11-15 15:42] VITALS: BP 112/59
[2019-11-15] MEDS ORDERED: MONTELUKAST 10 MG TABLET PO SCH (21:00)
== END 2019-11-15 18:26 | disposition home or self-care (01) | DRG 203 ==
LOC: N.ED 20:19 → SUATTDRO 11-08 03:42 → N.EDINP 11-08 03:42 → N.3E 11-08 04:04
PROVIDERS: ADMIT Internal Medicine; ATTEND Family Medicine